=== PATIENT | female | born 1965 | race Caucasian/White ===

== ENCOUNTER 2023-08-03 16:49 | Emergency (ER) | payer BC, OTHER | END 2023-08-03 19:11 | disposition left against medical advice (07) | LOC: EDH 16:49 | DX: M25.539 Pain in unspecified wrist (principal); Z53.21 Procedure and treatment not carried out due to patient leaving prior to being seen by health care provider ==

== ENCOUNTER 2023-08-04 14:30 | Emergency (ER) | payer BC ==
[~2023-08-04] VITALS: Ht 167.6 cm; Wt 89.5 kg
[2023-08-04 15:03] VITALS: BP 132/80; PULSE 88; RESP 16; O2SAT 100
== END 2023-08-04 21:11 | disposition home or self-care (01) ==
LOC: EDH 14:30
DX: S60.212A Contusion of left wrist, initial encounter (principal); S20.212A Contusion of left front wall of thorax, initial encounter; M79.7 Fibromyalgia; F32.A Depression, unspecified; Z88.0 Allergy status to penicillin; Z90.49 Acquired absence of other specified parts of digestive tract; W01.0XXA Fall on same level from slipping, tripping and stumbling without subsequent striking against object, initial encounter; Y93.01 Activity, walking, marching and hiking; Y92.89 Other specified places as the place of occurrence of the external cause; Y99.8 Other external cause status
CPT/HCPCS: 29105; 71100; 73100